=== PATIENT | male | born 1950 | race Hispanic/Latino ===

== ENCOUNTER 2017-11-20 16:40 | Outpatient (CLI) | payer OTHER | END 2017-11-20 16:41 | disposition home or self-care (01) | LOC: BICRAD 16:40 | PROVIDERS: ATTEND Internal Medicine | DX: M79.605 Pain in left leg (principal) ==

== ENCOUNTER 2017-11-24 14:14 | Outpatient (CLI) | payer OTHER ==
--- NOTE | 2017-11-24 15:50 | ULT ---
VENOUS DOPPLER ULTRASOUND OF THE LEFT LOWER EXTREMITY: HISTORY: Left lower extremity pain. TECHNIQUE: Alfaro scale ultrasound with color flow and spectral Doppler imaging of the deep venous system of the l eft lower extremity was performed. FINDINGS: There is good flow, compression, and augmentation noted in the left common femoral, femoral, deep fem oral, posterior tibial, and greater saphenous veins. IMPRESSION: No evidence of deep vein thrombosis in the left lower extremity. POS: OFF
== END 2017-11-24 14:15 | disposition home or self-care (01) ==
LOC: ULT 14:14
PROVIDERS: ATTEND Internal Medicine
DX: M79.605 Pain in left leg (principal); I10 Essential (primary) hypertension; E78.5 Hyperlipidemia, unspecified

== ENCOUNTER 2022-09-30 09:30 | Outpatient (CLI) | payer MEDICARE | END 2022-09-30 09:31 | disposition home or self-care (01) | LOC: LABBT 09:30 | PROVIDERS: ATTEND Surgery | DX: Z01.810 Encounter for preprocedural cardiovascular examination (principal); K60.3 Anal fistula | CPT/HCPCS: 93005; 93010 ==

== ENCOUNTER 2022-10-03 06:45 | Day surgery (SDC) | payer MEDICARE ==
[2022-10-02 10:14] VITALS: BMI 31.4
[2022-10-03] MEDS ORDERED: Fentanyl 250 MCG/5 ML VIAL ONE (08:31)
[2022-10-03] MEDS ORDERED: Bupivacaine/Epinephrine 0.25% 30 ML VIAL ONE (08:34)
[2022-10-03] MEDS ORDERED: Lidocaine 2% 6 ML SYR ONE (08:34)
[2022-10-03] MEDS ORDERED: Sodium Chloride 0.9% 100 ML ONE (08:43)
[2022-10-03] MEDS ORDERED: cefOXitin 2 GM VIAL ONE (08:43)
[2022-10-03] MEDS ORDERED: PROPOFOL 200 MG/20 ML VIAL ONE (08:56)
[2022-10-03] MEDS ORDERED: Ondansetron PF 4 MG/2 ML Vial ONE (08:56)
== END 2022-10-03 11:00 | disposition home or self-care (01) ==
LOC: SDC 06:45
PROVIDERS: ATTEND Surgery
PROC: 0H88XZZ Division of Buttock Skin, External Approach (ICD-10-PCS; principal; 2022-10-03)
DX: K60.3 Anal fistula (principal); E11.9 Type 2 diabetes mellitus without complications; I10 Essential (primary) hypertension; Z79.84 Long term (current) use of oral hypoglycemic drugs; Z79.899 Other long term (current) drug therapy
CPT/HCPCS: J0694; J2405; J2704; J3010; J3490

== ENCOUNTER 2023-04-03 07:50 | Outpatient (CLI) | payer MEDICARE ==
[2023-04-03 09:39] LABS: #Basophils 0.1 10x3/uL (0.0-0.2); #Eosinphils 0.3 10x3/uL (0.0-0.5); #Monocytes 0.5 10x3/uL (0.0-1.1); #Neutrophils 3.8 10x3/uL (1.5-8.4); %Basophils 1.4 % (0.0-2.0); %Eosinophils 4.2 % (0.0-6.0); %Lymphocytes 27.3 % (18.0-47.0); %Neutrophils 58.6 % (40.0-75.0); Mean Corpuscular HGB CONC 33.8 g/dL (32.0-36.0); Mean Corpuscular Hemoglobin 30.5 pg (27.0-33.0); Mean Corpuscular Volume 90.4 fl (81.2-95.1); Mean Platelet Volume 9.8 fl (7.4-10.4); Platelet Count 308 10x3/uL (150-450); Red Blood Cell (RBC) Count 4.91 10x6/uL (4.32-5.72); White Blood Cell (WBC) Count 6.4 10x3/uL (3.5-10.5)
[2023-04-03 10:13] LABS: Anion Gap 13 mmol/L (10-20); BUN (Urea Nitrogen) 19 mg/dL (8.4-25.7); Calc. Creatinine Clearance 0 mL/min (70-130); Calcium 8.6 mg/dL (7.8-10.44); Carbon Dioxide 23 mmol/L (23-31); Chloride 107 mmol/L (98-107); Estimated GFR 88; Glucose 176 mg/dL (83-110); Potassium 4.3 mmol/L (3.5-5.1); Sodium 139 mmol/L (136-145)
== END 2023-04-03 07:51 | disposition home or self-care (01) ==
LOC: LABBT 07:50
PROVIDERS: ATTEND Surgery
DX: Z01.818 Encounter for other preprocedural examination (principal); K64.8 Other hemorrhoids
CPT/HCPCS: 80048; 85025; 93005; 93010

== ENCOUNTER 2023-04-08 09:55 | Day surgery (SDC) | payer MEDICARE ==
[2023-04-03 08:25] VITALS: BMI 32.8
[2023-04-08] MEDS ORDERED: Lidocaine 2% PF 5 ML VIAL ONE (10:14)
[2023-04-08] MEDS ORDERED: Bupivacaine/Epinephrine 0.25% 30 ML VIAL ONE (10:14)
[2023-04-08] MEDS ORDERED: fentaNYL PF 100 MCG/2 ML SYRINGE ONE (10:44)
[2023-04-08] MEDS ORDERED: cefOXitin 2 GM VIAL ONE (10:54)
[2023-04-08] MEDS ORDERED: Sodium Chloride 0.9% 100 ML ONE (10:54)
[2023-04-08] MEDS ORDERED: NEOSTIGMINE 3 MG/3 ML SYR 3 MG/3 ML SYRINGE ONE (11:00)
[2023-04-08] MEDS ORDERED: Lidocaine 1% PF 5 ML VIAL ONE (11:00)
[2023-04-08] MEDS ORDERED: PROPOFOL 200 MG/20 ML VIAL ONE (11:00)
[2023-04-08] MEDS ORDERED: Rocuronium Bromide 10 MG/ML (10ML VIAL) ONE (11:00)
[2023-04-08] MEDS ORDERED: Ondansetron PF 4 MG/2 ML Vial ONE (11:00)
[2023-04-08] MEDS ORDERED: Glycopyrrolate 0.2 MG/ML 5 ML SYRINGE ONE (11:00)
[2023-04-08] MEDS ORDERED: fentaNYL 50 mcg/mL 1 mL Vial ONE ×2 (12:02→12:16)
[2023-04-08] MEDS ORDERED: HYDROcodone/Acetaminophen 5/325 mg Tablet ONE (13:39)
== END 2023-04-08 14:20 | disposition home or self-care (01) ==
LOC: SDC 09:55
PROVIDERS: ATTEND Surgery
PROC: 06BY0ZC Excision of Hemorrhoidal Plexus, Open Approach (ICD-10-PCS; principal; 2023-04-08)
DX: K64.8 Other hemorrhoids (principal); I10 Essential (primary) hypertension; E11.9 Type 2 diabetes mellitus without complications; Z79.84 Long term (current) use of oral hypoglycemic drugs; Z79.899 Other long term (current) drug therapy
CPT/HCPCS: 46947; J3010; 88304; J0694; J2001; J2405; J2704; J3490